=== PATIENT | male | born 1955 | race Caucasian/White ===

== ENCOUNTER 2021-10-21 11:15 | Inpatient (IN) | payer OTHER ==
[~2021-10-21] VITALS: Ht 167.6 cm; Wt 68.9 kg
--- NOTE | 2021-10-21 11:20 | NUR ---
Pt brought by self, A&Ox4, pt presents to ER with L knee pain/ swelling ,denies trauma, pt states he is a dialysis patient ,last dialysis was on friday, skin pink and warm, cap refill <3, respirations even and unlabored, will cont to monitor.
[2021-10-21 11:29] VITALS: BP_SYST 170
--- NOTE | 2021-10-21 14:55 | NUR ---
Patient to ER [facility] to gon for evaluation. Side rails up.
--- NOTE | 2021-10-21 16:00 | NUR ---
ER DR. TRUONG EXAMINING PT
[2021-10-21] MEDS ORDERED: OXYCODONE/ACETAMINOPHEN *10*mg/325 mg TABLET PO ONE (16:15)
[2021-10-21] MEDS ORDERED: IBUPROFEN 600 MG TABLET PO ONE (16:15)
[2021-10-21 16:59] LABS: BASOPHILS % (AUTO) 0.7 % (0.0-2.0); EOSINOPHILS # (AUTO) 0.1 K/uL (0.0-0.4); EOSINOPHILS % (AUTO) 1.6 % (0.0-4.0); HEMATOCRIT 35.2 % (36-54); HEMOGLOBIN 11.8 g/dL (14.0-18.0); LYMPHOCYTES # (AUTO) 0.7 K/uL (1.0-5.5); LYMPHOCYTES % (AUTO) 10.6 % (20.5-51.5); MEAN CORPUSCULAR HEMOGLOBIN 30 pg (27-31); MEAN CORPUSCULAR HGB CONC 34 % (32-36); MEAN CORPUSCULAR VOLUME 90 fL (79.0-98.0); MONOCYTES # (AUTO) 0.6 K/uL (0.0-1.0); MONOCYTES % (AUTO) 10.4 % (1.7-9.3); NEUTROPHILS # (AUTO) 4.7 K/uL (1.8-7.7); NEUTROPHILS % (AUTO) 76.7 % (40.0-70.0); PLATELET COUNT (AUTO) 171 K/uL (130-430); RED BLOOD CELL COUNT(AUTO) 3.91 MIL/uL (4.2-6.2); RED CELL DISTRIBUTION WIDTH 16.8 % (9.0-15.0); WHITE BLOOD COUNT (AUTO) 6.1 K/uL (4.8-10.8)
--- NOTE | 2021-10-21 17:41 | NUR ---
Pt requested applejuice noted diabetic/dialysis history. Accucheck 160. Ordered diabetic dinner.
[2021-10-21 18:01] LABS: ERYTHROCYTE SEDIMENTATION RATE 53 MM/HR (0-15)
[2021-10-21 18:05] LABS: ALBUMIN 3.6 g/dL (3.4-4.8); CALCIUM 9.2 mg/dL (8.4-11.0); CREATININE 5.57 mg/dL (0.55-1.30); POTASSIUM 4.2 mmol/L (3.5-5.1); TOTAL BILIRUBIN 0.5 mg/dL (0.0-1.0); URIC ACID 5.5 mg/dL (2.4-7.0)
[2021-10-21] MEDS ORDERED: VANCOMYCIN HCL 1,000 MG in NS 250 ML IV ONE (18:30)
[2021-10-21] MEDS ORDERED: VANCOMYCIN HCL 1000 MG/VIAL IV ONE (18:35)
[2021-10-21] MEDS ORDERED: ONDANSETRON HCL 4 MG/2 ML VIAL IVP ONE (18:45)
[2021-10-21] MEDS ORDERED: CEFEPIME 1 GM in D5W 50 ML IV ONE (18:45)
[2021-10-21] MEDS ORDERED: ONDANSETRON 4 MG ODT TAB PO ONE (18:45)
--- NOTE | 2021-10-21 18:46 | NUR ---
Pt moved to bed 07
[2021-10-21] MEDS ORDERED: CEFEPIME 1 GM/VIAL (MAXIPIME) ONE (21:13)
[2021-10-21] MEDS ORDERED: ONDANSETRON HCL 4 MG/2 ML VIAL ONE (21:55)
[2021-10-22] MEDS ORDERED: cloNIDine HCL 0.1 MG TABLET ONE (01:27)
[2021-10-22] MEDS ORDERED: cloNIDine HCL 0.1 MG TABLET PO ONE (01:30)
--- NOTE | 2021-10-22 01:49 | NUR ---
PATIENT IN BED AWAKE,ALERT AND ORIENTED X4 SPEECH CLEAR AND COHERENT, DEIES PAIN WHEN ASSESSED, STBLE 2230 PATIENT NOTED TO HAVE ,ELEVATED BP 177/47 MEDICATED ORDERED , RE EVALUTED BP TRENDING DOWN, BP160/43 WILL CONTINUE TO MONITOR
--- NOTE | 2021-10-22 02:27 | NUR ---
REASSESSED, BP 148/46, HR52 ,RR16. WILL CONTINUE TO MONITOR
[2021-10-22] MEDS ORDERED: HYDR100T25 PO (06:43)
[2021-10-22] MEDS ORDERED: NITR1PAT84 TD (06:43)
[2021-10-22] MEDS ORDERED: PRO40 PO (06:43)
[2021-10-22] MEDS ORDERED: LIP40 PO (06:43)
[2021-10-22] MEDS ORDERED: ZOLP5TAB2 PO (06:43)
[2021-10-22] MEDS ORDERED: LISI20TA30 PO (06:43)
[2021-10-22] MEDS ORDERED: CARV6.2554 PO (06:43)
[2021-10-22] MEDS ORDERED: CALC0.258 PO (06:43)
[2021-10-22] MEDS ORDERED: FOLI-43 PO (06:43)
[2021-10-22] MEDS ORDERED: ZINC500P17 MC (06:43)
[2021-10-22] MEDS ORDERED: ISOS60TA71 PO (06:43)
[2021-10-22] MEDS ORDERED: CLOP75TA32 PO (06:43)
--- NOTE | 2021-10-22 07:27 | NUR ---
Admit bed requested Patient will be admitted to care of . Admitted to [facility] unit. Diagnosis CELLULITIS Inpatient (Yes or No) ES Observation (Yes or No) NO Orientation concerns or request close to nursing station (Yes or No) NO Covid Status NEGATIVE On vent or bipap NO Isolation requirements NO Needs a sitter NO From Home (Yes or if No enter name of facility) HOME Requires Dialysis (Yes or No) NO Med Rec Completed (Yes of No) YES
--- NOTE | 2021-10-22 12:51 | NUR ---
PT PROVIDED WITH LUNCH TRAY
[2021-10-22] MEDS ORDERED: HYDROcodone/ACETAMIN 5-325 MG TAB (NORCO/ VICODIN) PO PRN (13:15)
[2021-10-22] MEDS ORDERED: LORazepam 2 MG/ML VIAL IVP PRN (13:15)
[2021-10-22] MEDS ORDERED: ACETAMINOPHEN 325 MG TABLET PO PRN (13:15)
[2021-10-22] MEDS ORDERED: ZOLPIDEM TARTRATE 5 MG TABLET PO PRN (13:15)
[2021-10-22] MEDS ORDERED: NALOXONE HCL 0.4 MG/ML AMP (NARCAN) IVP PRN ×2 (13:15)
[2021-10-22] MEDS ORDERED: hydrALAZINE HCL 25 MG TABLET PO PRN (13:15)
[2021-10-22] MEDS ORDERED: ONDANSETRON HCL 4 MG/2 ML VIAL IVP PRN (13:15)
[2021-10-22] MEDS: NORMAL SALINE 5 ML DISP.SYRIN IVF SCH ×4 (15:11→21:47)
[2021-10-22] MEDS ORDERED: HEPARIN SODIUM,PORCINE 5,000 UNITS/ML VIAL ONE ×2 (15:14→16:36)
[2021-10-22] MEDS ORDERED: HEPARIN SODIUM,PORCINE 5,000 UNITS/ML VIAL MC ONE (15:15)
[2021-10-22 20:00] VITALS: BP_SYST 183
[2021-10-22 20:26] VITALS: BP_SYST 201
[2021-10-22] MEDS: lisinopriL 20 MG TABLET PO SCH (21:37)
[2021-10-22] MEDS: CARVEDILOL 6.25 MG TABLET (COREG) PO SCH (21:38)
[2021-10-22] MEDS: ATORVASTATIN 20 MG TABLET PO SCH (21:38)
[2021-10-22] MEDS: HYDROcodone/ACETAMIN 10-325 MG TAB PO PRN (21:39)
[2021-10-22] MEDS: CEFTAROLINE FOSAMIL ACETATE 400 MG in NS 250 ML IV SCH (21:55)
[2021-10-22] MEDS: INSULIN REGULAR, HUMAN 100 UNITS/ML, 10 ML VIAL (humuLIN R) SUBCUT PRN (21:57)
[2021-10-23] MEDS: NORMAL SALINE 5 ML DISP.SYRIN IVF SCH ×4 (06:36→22:00)
[2021-10-23] MEDS: HYDROcodone/ACETAMIN 10-325 MG TAB PO PRN (06:41)
[2021-10-23 07:07] LABS: BASOPHILS # (AUTO) 0.1 K/uL (0.0-0.2); BASOPHILS % (AUTO) 1.4 % (0.0-2.0); EOSINOPHILS # (AUTO) 0.3 K/uL (0.0-0.4); EOSINOPHILS % (AUTO) 5.6 % (0.0-4.0); HEMATOCRIT 32.3 % (36-54); HEMOGLOBIN 11.2 g/dL (14.0-18.0); LYMPHOCYTES # (AUTO) 0.6 K/uL (1.0-5.5); LYMPHOCYTES % (AUTO) 12.2 % (20.5-51.5); MEAN CORPUSCULAR HEMOGLOBIN 31 pg (27-31); MEAN CORPUSCULAR HGB CONC 35 % (32-36); MEAN CORPUSCULAR VOLUME 89 fL (79.0-98.0); MONOCYTES # (AUTO) 0.8 K/uL (0.0-1.0); MONOCYTES % (AUTO) 14.2 % (1.7-9.3); NEUTROPHILS # (AUTO) 3.5 K/uL (1.8-7.7); NEUTROPHILS % (AUTO) 66.6 % (40.0-70.0); PLATELET COUNT (AUTO) 162 K/uL (130-430); RED BLOOD CELL COUNT(AUTO) 3.65 MIL/uL (4.2-6.2); RED CELL DISTRIBUTION WIDTH 16.3 % (9.0-15.0); WHITE BLOOD COUNT (AUTO) 5.3 K/uL (4.8-10.8)
[2021-10-23 07:38] LABS: CALCIUM 8.1 mg/dL (8.4-11.0); CREATININE 4.36 mg/dL (0.55-1.30); PHOSPHORUS 4.1 mg/dL (2.7-4.5); POTASSIUM 3.9 mmol/L (3.5-5.1)
[2021-10-23] MEDS: PANTOPRAZOLE SODIUM 40 MG TAB PO SCH (08:55)
[2021-10-23] MEDS: FOLIC ACID 1 MG TABLET PO SCH (08:55)
[2021-10-23] MEDS: calcitrioL 0.25 MCG CAPSULE PO SCH (08:55)
[2021-10-23] MEDS: CLOPIDOGREL BISULFATE 75 MG TABLET PO SCH (08:56)
[2021-10-23] MEDS: ISOSORBIDE MONONITRATE 30 MG TAB.ER.24H PO SCH (08:57)
[2021-10-23] MEDS: CARVEDILOL 6.25 MG TABLET (COREG) PO SCH ×2 (08:57→21:22)
[2021-10-23] MEDS: CEFTAROLINE FOSAMIL ACETATE 400 MG in NS 250 ML IV SCH ×2 (08:58→21:17)
[2021-10-23] MEDS: NITROGLYCERIN 0.2 MG/HR PATCH.TD24 TD SCH (09:00)
[2021-10-23] MEDS: INSULIN REGULAR, HUMAN 100 UNITS/ML, 10 ML VIAL (humuLIN R) SUBCUT PRN (17:36)
[2021-10-23 20:00] VITALS: BP_SYST 167
[2021-10-23] MEDS: ATORVASTATIN 20 MG TABLET PO SCH (21:09)
[2021-10-23] MEDS: lisinopriL 20 MG TABLET PO SCH (21:24)
[2021-10-24] VITALS: BP_SYST 149
[2021-10-24] MEDS: NORMAL SALINE 5 ML DISP.SYRIN IVF SCH ×2 (06:46→14:01)
[2021-10-24 07:00] VITALS: BP_SYST 133
[2021-10-24 07:45] LABS: BASOPHILS # (AUTO) 0.1 K/uL (0.0-0.2); BASOPHILS % (AUTO) 1.3 % (0.0-2.0); EOSINOPHILS # (AUTO) 0.2 K/uL (0.0-0.4); EOSINOPHILS % (AUTO) 4.4 % (0.0-4.0); HEMATOCRIT 30.8 % (36-54); HEMOGLOBIN 10.4 g/dL (14.0-18.0); LYMPHOCYTES # (AUTO) 0.8 K/uL (1.0-5.5); LYMPHOCYTES % (AUTO) 15.4 % (20.5-51.5); MEAN CORPUSCULAR HEMOGLOBIN 30 pg (27-31); MEAN CORPUSCULAR HGB CONC 34 % (32-36); MEAN CORPUSCULAR VOLUME 90 fL (79.0-98.0); MONOCYTES # (AUTO) 0.8 K/uL (0.0-1.0); MONOCYTES % (AUTO) 14.1 % (1.7-9.3); NEUTROPHILS # (AUTO) 3.5 K/uL (1.8-7.7); NEUTROPHILS % (AUTO) 64.8 % (40.0-70.0); PLATELET COUNT (AUTO) 166 K/uL (130-430); RED BLOOD CELL COUNT(AUTO) 3.44 MIL/uL (4.2-6.2); RED CELL DISTRIBUTION WIDTH 16.8 % (9.0-15.0); WHITE BLOOD COUNT (AUTO) 5.4 K/uL (4.8-10.8)
[2021-10-24 08:00] VITALS: BP_SYST 133
[2021-10-24 08:24] LABS: C-REACTIVE PROTEIN QUANT 2.8 mg/dL (0-0.5); CALCIUM 7.9 mg/dL (8.4-11.0); CREATININE 5.73 mg/dL (0.55-1.30); PHOSPHORUS 5.5 mg/dL (2.7-4.5); POTASSIUM 4.3 mmol/L (3.5-5.1)
[2021-10-24] MEDS: calcitrioL 0.25 MCG CAPSULE PO SCH (08:57)
[2021-10-24] MEDS: FOLIC ACID 1 MG TABLET PO SCH (08:57)
[2021-10-24] MEDS: PANTOPRAZOLE SODIUM 40 MG TAB PO SCH (08:57)
[2021-10-24] MEDS: CLOPIDOGREL BISULFATE 75 MG TABLET PO SCH (08:57)
[2021-10-24] MEDS: NITROGLYCERIN 0.2 MG/HR PATCH.TD24 TD SCH (08:58)
[2021-10-24] MEDS: CEFTAROLINE FOSAMIL ACETATE 400 MG in NS 250 ML IV SCH (08:58)
[2021-10-24] MEDS: ISOSORBIDE MONONITRATE 30 MG TAB.ER.24H PO SCH (09:00)
[2021-10-24] MEDS: CARVEDILOL 6.25 MG TABLET (COREG) PO SCH (09:00)
[2021-10-24 10:08] LABS: ERYTHROCYTE SEDIMENTATION RATE 19 MM/HR (0-15)
[2021-10-24] MEDS ORDERED: DOXY100T2 PO (10:38)
[2021-10-24] MEDS ORDERED: HYDR-3919 PO (10:38)
[2021-10-24 12:00] VITALS: BP_SYST 171
[2021-10-24] MEDS ORDERED: HEPARIN SODIUM,PORCINE 5,000 UNITS/ML VIAL SUBCUT ONE (12:30)
[2021-10-24] MEDS ORDERED: HEPARIN SODIUM,PORCINE 5,000 UNITS/ML VIAL MC ONE (12:45)
[2021-10-24 13:39] VITALS: BP_SYST 171
--- NOTE | 2021-10-24 14:10 | NUR ---
Discharge appointments and vendors arranged by [facility] Building Analyst/Supervisor. Primary [facility] will call with date and time Follow up with established tire trucker [facility] will call with date and time [facility] for medication reconciliation Agency will call and schedule visit. Please call Patient Support Center [phone] for worsening symptoms or trouble getting your medicine. For care needs when provider office is closed, contact [facility] [place] [phone] or [facility] [place] [phone].
[2021-10-24] MEDS ORDERED: HEPARIN SODIUM,PORCINE 5,000 UNITS/ML VIAL SUBCUT SCH (21:00)
== END 2021-10-24 17:30 | disposition home or self-care (01) | DRG 871 ==
LOC: SED 11:15 → SMU 18:48
PROVIDERS: ADMIT Preventive Medicine Preventive Medicine/Occupational Environmental Medicine; ATTEND Preventive Medicine Preventive Medicine/Occupational Environmental Medicine
PROC: 5A1D70Z Performance of Urinary Filtration, Intermittent, Less than 6 Hours Per Day (ICD-10-PCS; principal; 2021-10-22)
DX: A41.9 Sepsis, unspecified organism (principal); N18.6 End stage renal disease; I12.0 Hypertensive chronic kidney disease with stage 5 chronic kidney disease or end stage renal disease; I25.10 Atherosclerotic heart disease of native coronary artery without angina pectoris; E11.22 Type 2 diabetes mellitus with diabetic chronic kidney disease; D63.1 Anemia in chronic kidney disease; E11.65 Type 2 diabetes mellitus with hyperglycemia; M1A.9XX1 Chronic gout, unspecified, with tophus (tophi); M70.42 Prepatellar bursitis, left knee; E11.21 Type 2 diabetes mellitus with diabetic nephropathy; Z20.822 Contact with and (suspected) exposure to COVID-19; Z83.3 Family history of diabetes mellitus; Z95.1 Presence of aortocoronary bypass graft; Z99.2 Dependence on renal dialysis; Z79.899 Other long term (current) drug therapy; Z88.0 Allergy status to penicillin; Z88.8 Allergy status to other drugs, medicaments and biological substances
CPT/HCPCS: 36415; 73564; 80048; 80053; 82962; 83605; 83735; 84100; 84550; 85025; 85651-TC; 85730-TC; 86140; 87040; 87081; 90935; 90937; 96365; 96375; 99285; J0692; J0712; J1644; J2405; J3370; J7050; Q0162

== ENCOUNTER 2022-09-18 15:29 | Emergency (ER) | payer OTHER ==
[~2022-09-18] VITALS: Ht 167.6 cm; Wt 80.3 kg
[~2022-09-18 15:29] MED LIST: CALC0.258 PO; CARV6.2554 PO; CLOP75TA32 PO; DOXY100T2 PO; FOLI-43 PO; HYDR-3919 PO; HYDR100T25 PO; ISOS60TA71 PO; LIP40 PO; LISI20TA30 PO; NITR1PAT84 TD; PRO40 PO; ZINC500P17 MC; ZOLP5TAB2 PO
[2022-09-18 15:40] VITALS: BP_SYST 121
[2022-09-18 16:53] LABS: BASOPHILS % (AUTO) 0.2 % (0.0-2.0); EOSINOPHILS # (AUTO) 0.1 K/uL (0.0-0.4); EOSINOPHILS % (AUTO) 2.7 % (0.0-4.0); HEMATOCRIT 31.2 % (36-54); HEMOGLOBIN 10.2 g/dL (14.0-18.0); LYMPHOCYTES # (AUTO) 0.7 K/uL (1.0-5.5); LYMPHOCYTES % (AUTO) 12.7 % (20.5-51.5); MEAN CORPUSCULAR HEMOGLOBIN 31 pg (27-31); MEAN CORPUSCULAR HGB CONC 33 % (32-36); MEAN CORPUSCULAR VOLUME 95 fL (79.0-98.0); MONOCYTES # (AUTO) 0.8 K/uL (0.0-1.0); MONOCYTES % (AUTO) 15.9 % (1.7-9.3); NEUTROPHILS # (AUTO) 3.6 K/uL (1.8-7.7); NEUTROPHILS % (AUTO) 68.5 % (40.0-70.0); PLATELET COUNT (AUTO) 106 K/uL (130-430); RED BLOOD CELL COUNT(AUTO) 3.28 MIL/uL (4.2-6.2); RED CELL DISTRIBUTION WIDTH 20.4 % (9.0-15.0); WHITE BLOOD COUNT (AUTO) 5.3 K/uL (4.8-10.8)
[2022-09-18 17:09] LABS: CALCIUM 8.6 mg/dL (8.4-11.0); CREATININE 5.33 mg/dL (0.55-1.30)
[2022-09-18 17:14] LABS: ALBUMIN 3.3 g/dL (3.4-4.8); TOTAL BILIRUBIN 0.5 mg/dL (0.0-1.0)
[2022-09-18] MEDS ORDERED: MORPHINE 4 MG INJ. 4 MG/ML VIAL IM ONE (17:15)
[2022-09-18] MEDS ORDERED: NEU100 PO (18:26)
[2022-09-18] MEDS ORDERED: TRAM50TA2 PO (18:26)
[2022-09-18 18:46] VITALS: BP_SYST 124
== END 2022-09-18 18:39 | disposition home or self-care (01) ==
LOC: SED 15:29
DX: G62.9 Polyneuropathy, unspecified (principal); M79.642 Pain in left hand; Z88.0 Allergy status to penicillin; Z88.8 Allergy status to other drugs, medicaments and biological substances; Z79.899 Other long term (current) drug therapy
CPT/HCPCS: 99284; 80053; 85025; 36415; 73120; 96372; 83605; 82397; J2270

== ENCOUNTER 2023-06-10 05:20 | Day surgery (SDC) | payer OTHER ==
[~2023-06-10] VITALS: Ht 167.6 cm; Wt 75.7 kg
[~2023-06-10 05:20] MED LIST changes: +NEU100 PO; +TRAM50TA2 PO
[2023-06-10 07:04] LABS: HEMATOCRIT 24.8 % (36-54); HEMOGLOBIN 7.7 g/dL (14.0-18.0); MEAN CORPUSCULAR HEMOGLOBIN 33 pg (27-31); MEAN CORPUSCULAR HGB CONC 31 % (32-36); MEAN CORPUSCULAR VOLUME 106 fL (79.0-98.0); PLATELET COUNT (AUTO) 124 K/uL (130-430); RED BLOOD CELL COUNT(AUTO) 2.34 MIL/uL (4.2-6.2); RED CELL DISTRIBUTION WIDTH 21.3 % (9.0-15.0); WHITE BLOOD COUNT (AUTO) 7.4 K/uL (4.8-10.8)
[2023-06-10 07:06] LABS: CALCIUM 8.1 mg/dL (8.4-11.0); CREATININE 4.11 mg/dL (0.55-1.30); POTASSIUM 3.8 mmol/L (3.5-5.1)
[2023-06-10 07:11] LABS: INR 1.2 (0.80-1.20); PROTHROMBIN TIME 12.3 SECS (9.5-12.5)
[2023-06-10 08:14] LABS: BAND % (MANUAL) 2 % (0-6); LYMPHOCYTES % (MANUAL) 10 % (20-46)
[2023-06-10 08:15] LABS: BASOPHILS % (MANUAL) 0 % (0-2); EOSINOPHILS % (MANUAL) 1 % (0-7); MONOCYTES % (MANUAL) 11 % (0-11); PLATELET ESTIMATE DECREASED (ADEQUATE)
[2023-06-10 08:16] LABS: ANISOCYTOSIS 2+; OVALOCYTES FEW; TARGET CELLS FEW
[2023-06-10 09:09] VITALS: O2SAT 100
[2023-06-10 17:31] VITALS: BP_SYST 97; PULSE 68; RESP 18
== END 2023-06-10 14:44 | disposition home or self-care (01) ==
LOC: SMU 05:20 → SDS 05:20
PROVIDERS: ATTEND Internal Medicine Gastroenterology
DX: K92.2 Gastrointestinal hemorrhage, unspecified (principal); D64.9 Anemia, unspecified; I11.0 Hypertensive heart disease with heart failure; I50.22 Chronic systolic (congestive) heart failure; E11.9 Type 2 diabetes mellitus without complications; I25.10 Atherosclerotic heart disease of native coronary artery without angina pectoris; I44.7 Left bundle-branch block, unspecified; E78.5 Hyperlipidemia, unspecified; Z95.1 Presence of aortocoronary bypass graft; Z88.0 Allergy status to penicillin; Z79.899 Other long term (current) drug therapy
CPT/HCPCS: 43255; 93005; 85027; 80048; 85007; 85610; 85730; 36415; 71045; 82948; G0378